=== PATIENT | female | born 1990 | race Caucasian/White ===

== ENCOUNTER 2018-09-05 21:03 | Emergency (ER) | payer OTHER ==
--- NOTE | 2018-09-05 21:14 | EDPHY ---
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 She reports that she believes that she brandee it her ankle and felt immediate pain at the base of her 5th toe. She then developed swelling and increased pain with weight-bearing. Denies radiation, weakness. She does complain of some numbness and tingling in her 5th toe. No prior history of ankle sprains Modifying Factors: None Comment: ROS: A comprehensive 10 system review of systems is otherwise negative aside from elements mentioned in the history of present illness. 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 NECK: supple EXTREMITIES: 2/2 pedal pulses, strength 5/5, left Ankle: Plantar flexion to 50 , dorsiflexion to 20. Foot inversion to 35 degree. No tenderness/swelling Anterior talofibular ligament. No tenderness/swelling Calcaneofibular ligament , no tenderness/swelling posterior talofibular ligament, no tenderness/swelling posterior inferior tibiofibular ligament. Achilles tendon intact. Swelling and tenderness with palpation at the base of the 5th toe. DIP/PIP/MCP flexion/ extension intact with good light touch sensation. no deformities, no clubbing, no cyanosis or edema. NEUROLOGICAL: no focal neuro deficits. GCS 15. Light touch sensation intact. SKIN: Warm and dry, no erythema. no rash. Good capillary refill. (Lizbet Carney) Constitutional: Initial Vital Signs Temperature (C) 36.8 C 09/05/18 21:05 Heart Rate 110 H 09/05/18 21:05 Respiratory Rate 16 09/05/18 21:05 Blood Pressure 131/90 H 09/05/18 21:05 O2 Sat (%) 98 09/05/18 21:05 O2 Delivery Mode Room Air Allergies/Adverse Reactions: Sulfa (Sulfonamide Antibiotics) Allergy (Verified 09/05/18 21:08) Home Medications: Medication Instructions Recorded oxyCODONE/APAP 5/325 [Percocet 1 - 2 tab PO Q4H PRN #10 tab 09/05/18 5/325 (*)] Medical Decision Making Procedures: Procedure: Splint placement. A left walking boot and crutches were applied by the Emergency Room retread technician. After application of the splint I returned and re-examined the patient. The splint was adequately immobilizing the joint and distal to the splint the patient's circulation and sensation was intact. (Lizbet Carney) ED Course/Re-evaluation: Left ankle x-ray and left foot x-ray ordered Ice pack applied X-ray my read shows base of 5th metatarsal displaced fracture Walking boot, crutches, orthopedic follow-up Given prepack of Percocet No signs of neurovascular compromise/tenting of skin/compartment syndrome/ extremities and joints examined above and below area of concern and are neurovascularly intact. This patient was seen under the supervision of my secondary supervising physician. I evaluated care for this patient independently. Discussed this patient with Dr. Yoon. (Lizbet Carney) The patient was evaluated and managed by the physician medical services assistant. I have reviewed this chart and I agree with the findings and plan of care as documented , as indicated by my signature. I am the secondary supervising physician. ( Kayla Yoon) Differential Diagnosis: Ankle injury differential diagnosis includes but is not limited to tibia fracture, fibula fracture, metatarsal fracture, LisFranc fracture, achilles tendon rupture, sprain. (Lizbet Carney) - Data Points Medications Given: Discontinued Medications Oxycodone/Acetaminophen (Percocet 5/325mg Prepack#4) 1 btl BENEDICTO MAIER ONE Stop: 09/05/18 22:02 Last Admin: 09/05/18 22:13 Dose: 1 btl Departure - Departure Disposition: Home, Routine, Self-Care Clinical Impression: Fracture of metatarsal of left foot, closed Condition: Good Instructions: Oxycodone/Acetaminophen (By mouth), Crutch Instructions (ED), Toe Fracture (ED) Additional Instructions: Wear the walking boot while out of bed until pain free or seen by Orthopedics. Use crutches to aid ambulation. Start with toe-touch weight-bearing status. Take Tylenol 650 mg every 4 hours and/or Ibuprofen 600 mg every 8 hours with food as needed for pain. Use Percocet every 6 hours as needed for severe/break through pain. Do not use Tylenol and Percocet concomitantly. Apply ice for 30 minutes at a time; 2-3 times per day for the next 1-2 days. Follow up with Orthopedics in 5-7 days at which time they will evaluate and recommend with you if conservative management versus surgery is indicated. Referrals: Torin Turk MD [Medical Doctor] - As per Instructions Stand Alone Forms: Work Comp Follow Up, Work Excuse Prescriptions: oxyCODONE/APAP 5/325 [Percocet 5/325 (*)] 1 - 2 tab PO Q4H PRN #10 tab PRN Reason: Pain, Severe
[2018-09-05] MEDS ORDERED: OXYCODONE/APAP 5/325MG PREPACK#4 BTL TAKEHOME ONE (22:01)
[2018-09-05 22:30] VITALS: BP 152/94
--- NOTE | 2018-09-06 17:28 | ASMTCMCOM ---
CM Note CM Note Notes: This CM received call from patient today requesting a referral to be sent to Dr. Torin Turk relating to patient's ED visit on 09/05/18. I have contacted Dr. Turk's ofice to confirm fax number and faxed ED report/referral per patient's request. Date Signed: 09/06/2018 05:27 PM Electronically Signed By:Laverne Solis RN
== END 2018-09-05 22:30 | disposition home or self-care (01) ==
DX: S92.352A Displaced fracture of fifth metatarsal bone, left foot, initial encounter for closed fracture (principal); X50.1XXA Overexertion from prolonged static or awkward postures, initial encounter; Y92.480 Sidewalk as the place of occurrence of the external cause
CPT/HCPCS: L4386